=== PATIENT | female | born 1960 | race Caucasian/White ===

== ENCOUNTER 2020-01-03 17:23 | Observation (INO) | payer OTHER, SELFPAY ==
--- NOTE | ~2020-01-03 | XR_ITS ---
EXAMINATION: XR chest 1V portable INDICATION: Fever and cough TECHNIQUE: Portable AP chest at 1817 hours COMPARISON: 03/19/2018 FINDINGS: There are minimal airspace opacities of the lung bases. No pleural effusion or pneumothorax is identified. The cardiomediastinal silhouette is normal. IMPRESSION: 1. Minimal airspace opacities of the lung bases, consistent with atelectasis versus pneumonia. Reviewed, dictated and finalized at location A. IMPRESSION: 1. Minimal airspace opacities of the lung bases, consistent with atelectasis ve rsus pneumonia.
--- NOTE | ~2020-01-03 | XR_ITS ---
EXAMINATION: XR chest 2V DATE: 01/05/2020 09:24 INDICATION: Fever. TECHNIQUE: Frontal and lateral views of the chest were obtained. COMPARISON: Chest single view 01/03/2020, chest 2 views 03/19/2018 FINDINGS: Lung volumes are small, which is chronic. There is mild atelectasis in the lower lung zones . No pleural effusion or pneumothorax. The heart size is normal. Surgical clips in the right upper qu adrant are likely from cholecystectomy. IMPRESSION: 1. Chronically small lung volumes with mild atelectasis in the lower lung zones. Reviewed, dictated and finalized at location A. IMPRESSION: 1. Chronically small lung volumes with mild atelectasis in the lower lung zones .
[2020-01-03 17:30] VITALS: BP 149/89; PULSE 125; RESP 20; TEMP 38.4; O2SAT 98
--- NOTE | 2020-01-03 17:57 | ECG_ITS ---
Measurements Intervals [place] Rate: 114 P: 56 NH: 169 QRS: -53 QRSD: 122 T: 73 QT: 339 QTc: 469 Interpretive Statements SINUS TACHYCARDIA LEFT ANTERIOR FASCICULAR BLOCK VOLTAGE CRITERIA FOR LVH CANNOT RULE OUT SEPTAL INFARCT, AGE INDETERMINATE NONSPECIFIC ST & T-WAVE ABNORMALITY- HIGH LATERAL LEADS ABNORMAL ECG Electronically Signed On 01-03-2020 20:13:40 CDT by Mark Perkins D.O.
--- NOTE | 2020-01-03 18:07 | ED.GENADULT ---
HPI - General Adult General Chief complaint: Fever Stated complaint: Fever Time Seen by Provider: 01/03/20 17:56 Source: patient History of Present Illness HPI narrative: Patient is a 59 y/o female complaining of fever starting this morning. She states that her fever was up to 103 this after. She took Ibuprofen which did not help much. She also has cough and sore throat. She has some nausea, but no vomiting. She has no abdominal pain, diarrhea or dysuria. She denies any known COVID exposure. Related Data Home Medications Medication Instructions Recorded Confirmed amlodipine 5 mg PO DAILY 01/03/20 01/03/20 atorvastatin 40 mg PO HS 01/03/20 01/03/20 hydrochlorothiazide 25 mg PO DAILY 01/03/20 01/03/20 Allergies Allergy/AdvReac Type Severity Reaction Status Date / Time No Known Allergies Allergy Unknown Unverified 01/03/19 10:49 No Known Allergies Allergy Uncoded 01/03/19 10:49 Review of Systems Constitutional: Constitutional: Reports chills, Reports fever(s), Reports headache(s) and Denies weakness Eyes: Eyes: Denies blurry vision ENT: Reports headache(s) and Denies neck pain Cardiovascular: Cardiovascular: Denies chest pain and Denies dyspnea Respiratory: Respiratory: Reports cough and Denies dyspnea Gastrointestinal: Gastrointestinal: Denies abdominal pain, Denies diarrhea, Denies nausea and Denies vomiting Genitourinary: Genitourinary: Denies hematuria and Denies dysuria Musculoskeletal: Musculoskeletal: Denies back pain and Denies neck pain Neurologic: Reports headache(s) and Denies weakness [facility] Past Medical History Medical History (Updated 01/03/20 @ 22:16 by Alexandro Fuentes MD) Sleep apnea Surgical History Surgical History (Updated 01/03/20 @ 22:05 by Alexandro Fuentes MD) History of back surgery History of section, classical History of cholecystectomy Family History Family History (Updated 01/03/20 @ 22:05 by Alexandro Fuentes MD) Father Heart disease Acute myocardial infarction Social History Social History (Updated 01/03/20 @ 22:05 by Alexandro Fuentes MD) Smoking status: Former smoker Tobacco type: cigarettes Additional smoking assessment comments: social smoker Alcohol intake: current Substance use: never Substance use type: does not use Gender identity (if verbalized by the patient): Female Spiritual care concerns: No Exam Const: General: no acute distress and well developed Orientation/consciousness: oriented to person, oriented to place, oriented to time and patient oriented x3 HENMT: Head: normocephalic Ears: external ears normal General nose exam: Normal external nose present Eyes: General: appearance normal, both eyes and all related structures Conjunctivae: conjunctivae normal Neck: Neck: normal visual inspection and full ROM Chest: Chest palpation & inspection: normal inspection of the chest and no tenderness Resp: Effort & Inspection: normal respiratory effort Auscultation: clear to auscultation bilaterally Cardio: Rate: tachycardic Rhythm: regular rhythm GI: GI Palp: No abdominal tenderness and Yes Soft to palpation Skin: General skin exam: normal color and turgor normal Neuro: General: oriented to person, oriented to place, oriented to time and patient oriented x3 Cognition (Neuro): normal cognition Extrem: General: normal to inspection, full ROM and no pedal edema Psych: Appearance: grossly normal Mental Status: mental status grossly normal Affect: normal affect Course Consultations Consultation #1: Discussed with Dr. Fuentes, who agrees to admit. Date: 01/03/20 Time: 19:25 Vital Signs Vital signs: Vital Signs Temperature 38.4 C H 01/03/20 17:30 Pulse Rate 125 H 01/03/20 17:30 Respiratory Rate 20 01/03/20 17:30 Blood Pressure 149/89 H 01/03/20 17:30 Pulse Oximetry 98 01/03/20 17:30 Temperature 37.1 C 01/04/20 08:00 Pulse Rate 97 01/04/20 08:00 Respiratory Rate 18 01/04/20 08:00
[2020-01-03] MEDS: ACETAMINOPHEN 325 MG TABLET 650 MG PO (18:24)
[2020-01-03 18:59] LABS: Basophils Percent Auto 0.2 % (0.2-1.2); Eosinophils Absolute Auto 0.2 K/mm3 (0-0.3); Eosinophils Percent Auto 1.8 % (0-4.4); Hematocrit 41.6 % (37.0-47.0); Immature Granulocyte Absolute 0.05 K/mm3 (0.00-0.031); Immature Granulocyte Percent A 0.4 % (0-0.5); Lymphocytes Absolute Auto 1.52 K/mm3 (0.9-3.2); Lymphocytes Percent Auto 12.4 % (18.3-44.2); Mean Corpuscular HGB Conc 36.1 g/dl (32-36); Mean Corpuscular Hemoglobin 30.6 pg (26-34); Mean Corpuscular Volume 84.9 fl (80-100); Mean Platelet Volume 10.5 fl (7.4-10.4); Monocytes Absolute Auto 0.8 K/mm3 (0.1-0.6); Monocytes Percent Auto 6.4 % (2.6-8.5); Neutrophils Absolute Auto 9.7 K/mm3 (1.3-6.7); Neutrophils Percent Auto 78.8 % (45.5-73.1); Platelet Count Result 197 k/mm3 (150-375); Red Cell Distribution Width 12.8 % (11.5-14.5); White Blood Count 12.3 K/mm3 (4.5-10.0)
[2020-01-03 19:10] LABS: Lactic Acid Reflex 2.1 mmol/L (0.7-2.1)
[2020-01-03 19:11] LABS: Alanine Aminotransferase 69 U/L (4-35); Albumin Level 4.3 g/dL (3.5-5.1); Alkaline Phosphatase 99 U/L (38-126); Anion Gap 11 mmol/L (8-16); Aspartate Amino Transferase 47 U/L (14-36); Bilirubin,Total 0.7 mg/dL (0.2-1.3); Blood Urea Nitrogen 16 mg/dL (7-17); Calcium 9.2 mg/dL (8.4-10.2); Carbon Dioxide 25 mmol/L (22-30); Chloride 102 mmol/L (98-107); Estimated CRCL calculation 108 ml/min; Estimated Glomerular Filt Rate > 60; Glucose 182 mg/dL (65-105); Potassium 3.4 mmol/L (3.4-5.0); Sodium 138 mmol/L (137-145)
[2020-01-03 19:33] LABS: Add Urine Microscopic? YES; Appearance Urine Clear (Clear); Bilirubin Urine Negative (Negative); Blood Urine Negative (Negative); Color Urine Yellow (Yellow); Glucose Urine UA 1+ mg/dL (Negative); Ketones Urine Trace mg/dL (Negative); Leukocyte Esterase Ur 1+ LEU/UL (Negative); Mucus Urine Rare /lpf; Nitrate Urine Negative (Negative); Protein Urine 1+ mg/dL (Negative); Specific Grav Ur 1.024 (1.001-1.035); Squamous Epithelial Cell Urine Occasional /hpf (Few); Urobilinogen Urine Negative mg/dL (<2.0); WBC Urine 16-20 /hpf
[2020-01-03 19:39] VITALS: BP 133/92; PULSE 111; RESP 18; TEMP 38.7; O2SAT 96
[2020-01-03 21:10] VITALS: BP 137/72; PULSE 103; RESP 18; TEMP 37.3; O2SAT 94; BMI 37.4
[2020-01-03 21:13] VITALS: BP 154/103; PULSE 104; RESP 22; O2SAT 97
[2020-01-03 21:56] LABS: Reflex Lactic Acid Yes or No Add Lactic
[2020-01-03 22:00] VITALS: BP 137/72; PULSE 103; RESP 18; TEMP 37.3; O2SAT 94
--- NOTE | 2020-01-03 22:01 | PM.IMHP ---
H&P: HPI History of Present Illness Date/Time: 01/03/20 22:01 Chief complaint: pneumonia, sepsis Narrative: this is a morbidly obese 59-year-old female with known sleep apnea who uses a CPAP at home and who presented to the hospital today with complaint of fever of 103? F that started this morning. The patient also reports having a dry hacking sporadic cough that also seems of started this morning. She denies any shortness of breath, chest pain, palpitations, nausea, vomiting, diarrhea, dysuria, open wounds, rashes, lower extremity swelling, or focal neurological deficits. the patient was evaluated emergency room this evening and found to have a mild leukocytosis of 12,300. chest x-ray was obtained which demonstrated minimal airspace opacities of the lung bases. The patient has not required any supplemental oxygen to maintain her saturations and on my encounter with the patient she is saturating 98% on room air. The patient was treated with antibiotics for presumed bacterial pneumonia and swabbed for coronavirus. The patient was admitted to the hospital for observation. No other complaints tonight. Review of Systems Review of Systems: All systems reviewed & are unremarkable except as noted in HPI and below PMFSH Past Medical History Medical History (Updated 01/03/20 @ 22:16 by Alexandro Fuentes MD) Sleep apnea Surgical History Surgical History (Updated 01/03/20 @ 22:05 by Alexandro Fuentes MD) History of back surgery History of section, classical History of cholecystectomy Family History Family History (Updated 01/03/20 @ 22:05 by Alexandro Fuentes MD) Father Heart disease Acute myocardial infarction Social History Social History (Updated 01/03/20 @ 22:05 by Alexandro Fuentes MD) Smoking status: Former smoker Tobacco type: cigarettes Additional smoking assessment comments: social smoker Alcohol intake: current Substance use: never Substance use type: does not use Gender identity (if verbalized by the patient): Female Spiritual care concerns: No Meds Home Medications and Allergies Home Medications Medication Instructions Recorded Confirmed Type amlodipine 5 mg PO DAILY 01/03/20 01/03/20 History atorvastatin 40 mg PO HS 01/03/20 01/03/20 History hydrochlorothiazide 25 mg PO DAILY 01/03/20 01/03/20 History Allergies Allergy/AdvReac Type Severity Reaction Status Date / Time No Known Allergies Allergy Unknown Unverified 01/03/19 10:49 No Known Allergies Allergy Uncoded 01/03/19 10:49 Vital Signs Vital Signs - 24 hr 01/03/20 17:30 01/03/20 19:39 01/03/20 21:10 Temperature 38.4 C H 38.7 C H 37.3 C Pulse Rate 125 H 111 H 103 H Respiratory Rate 20 18 18 Blood Pressure 149/89 H 133/92 H 137/72 Pulse Oximetry 98 96 94 01/03/20 21:13 Temperature Pulse Rate 104 H Respiratory Rate 22 H Blood Pressure 154/103 H Pulse Oximetry 97 Exam Const: General: cooperative, no acute distress, alert and awake Nutritional Appearance: obese morbidly obese Orientation/consciousness: patient oriented x3 HENMT: Head: normal to inspection General nose exam: Normal external nose present Face and sinus: normal facial exam Mouth: Yes Normal oral and palatal mucosa present and Yes oropharynx normal Eyes: Pupils: Equal, round and reactive pupils present EOM: EOMs intact bilaterally Neck: Neck: supple and no JVD Thyroid: thyroid normal Lymphatic: lymphadenopathy not noted Resp: Effort & Inspection: normal respiratory effort Auscultation: clear to auscultation bilaterally Cardio: Rate: tachycardic Rhythm: regular rhythm Heart sounds: no murmurs GI: Inspection: normal to inspection Auscultation: normal bowel sounds Skin: General skin exam: normal color and no rashes or lesions noted Neuro: General: patient oriented x3 Cranial nerves: Yes CN's II-XII intact bilaterally and Yes Equal, round and reactive pupils present Speech: normal speech Ryan
[2020-01-03 22:53] VITALS: BMI 37.4
--- NOTE | 2020-01-03 22:59 | PC.NURSE ---
This patient, Natalee Glaser, was admitted to [facility] Surg Room 328-01. Patient/family oriented to hospital policies and general routines including ID bracelet, bed and alarms, visiting hours, pain management, procedures, bathroom and other care routines, personal items, smoking policy, room service/diet, and visiting hours. Valuables list has been completed. Information on how to activate the Rapid Response Team has been discussed. Patient/Family are encouraged to report perceived risks to care and to ask questions if they do not understand what they are told or what they should do.
[2020-01-04] VITALS (9 sets, daily range): BP systolic 125–154; BP diastolic 56–79; PULSE 83–104; RESP 18–20; TEMP 36.9–38.8; O2SAT 96–100
[2020-01-04] MEDS: ACETAMINOPHEN 325 MG TABLET 650 MG PO ×2 (01:36→15:06)
[2020-01-04 06:44] LABS: Basophils Percent Auto 0.2 % (0.2-1.2); Eosinophils Absolute Auto 0.2 K/mm3 (0-0.3); Eosinophils Percent Auto 1.6 % (0-4.4); Hematocrit 39.1 % (37.0-47.0); Hemoglobin 13.7 g/dL (12.0-15.0); Immature Granulocyte Absolute 0.05 K/mm3 (0.00-0.031); Immature Granulocyte Percent A 0.4 % (0-0.5); Lymphocytes Absolute Auto 1.67 K/mm3 (0.9-3.2); Lymphocytes Percent Auto 13.4 % (18.3-44.2); Mean Corpuscular Hemoglobin 30.4 pg (26-34); Mean Corpuscular Volume 86.7 fl (80-100); Mean Platelet Volume 10.1 fl (7.4-10.4); Neutrophils Absolute Auto 9.5 K/mm3 (1.3-6.7); Neutrophils Percent Auto 76.4 % (45.5-73.1); Platelet Count Result 158 k/mm3 (150-375); Red Blood Count 4.51 M/mm3 (4.2-5.4); White Blood Count 12.5 K/mm3 (4.5-10.0)
[2020-01-04 07:03] LABS: Alanine Aminotransferase 56 U/L (4-35); Albumin Level 3.9 g/dL (3.5-5.1); Alkaline Phosphatase 88 U/L (38-126); Anion Gap 8 mmol/L (8-16); Aspartate Amino Transferase 35 U/L (14-36); Bilirubin,Total 0.7 mg/dL (0.2-1.3); Blood Urea Nitrogen 14 mg/dL (7-17); Calcium 8.6 mg/dL (8.4-10.2); Carbon Dioxide 28 mmol/L (22-30); Chloride 102 mmol/L (98-107); Estimated CRCL calculation 96 ml/min; Estimated Glomerular Filt Rate > 60; Glucose 184 mg/dL (65-105); Potassium 3.6 mmol/L (3.4-5.0); Sodium 138 mmol/L (137-145)
[2020-01-04] MEDS: ALBUTEROL SULFATE (*SP) AEROSOL 1 PUFF 2 PUFF INHALATION ×2 (09:40→20:28)
[2020-01-04 12:00] LABS: SARS-CoV-2 RNA PCR Negative
--- NOTE | 2020-01-04 16:15 | PM.IMPN ---
Progress Note: A&P Assessment and Plan (1) Febrile illness, acute: Code(s): R50.9 - Fever, unspecified Status: Acute Assessment and Plan: acute febrile illness is likely viral in origin. Patient likely has viral respiratory illness. Will rule out Coronavirus. The patient's chest x-ray on my review does not appear to have any significant pneumonia. On exam the patient's lung sheehan are clear and she is not requiring any supplemental oxygen. Continue antipyretics as needed. 01/04/20 16:15 patient is a 59-year-old morbidly obese with history of sleep apnea and on CPAP presented emergency department with a complaint of fever and some cough patient was evaluated in emergency depart is found to slightly elevated white chest x-ray indicating infiltrate and patient is being admitted for community-acquired pneumonia and being treated with azithromycin and Rocephin, patient was also tested for COVID-19 and is negative, currently patient states feeling much better it has improved not a short of breath denies any fever or chills. will continue present managed repeat checks x-ray on Friday 01/05 and further recommendation to follow (2) Suspected 2019 novel coronavirus infection: Code(s): Z20.828 - Contact with and (suspected) exposure to other viral communicable diseases Status: Acute Assessment and Plan: Patient has been swab for Coronavirus. Coronavirus results pending. Continue droplet isolation. Continue meter dose inhaler bronchodilators. (3) Sepsis: Qualifiers: Sepsis acute organ dysfunction status: unspecified Sepsis type: sepsis due to unspecified organism Qualified Code(s): A41.9 - Sepsis, unspecified organism Code(s): A41.9 - Sepsis, unspecified organism Status: Acute Assessment and Plan: patient met sepsis criteria with tachycardia and fever. continue supportive care. (4) Transaminitis: Code(s): R74.0 - Nonspecific elevation of levels of transaminase and lactic acid dehydrogenase [LDH] Status: Acute Assessment and Plan: May be secondary to covid-19 vs. fatty liver disease. Check LFTs in am. consider RUQ ultrasound in outpatient setting. (5) Abnormal glucose: Code(s): R73.09 - Other abnormal glucose Status: Acute Assessment and Plan: r/o Diabetes mellitus. Check HgbA1c. Subjective Date/time seen: 01/04/20 16:15 patient is a 59-year-old morbidly obese with history of sleep apnea and on CPAP presented emergency department with a complaint of fever and some cough patient was evaluated in emergency depart is found to slightly elevated white chest x-ray indicating infiltrate and patient is being admitted for community-acquired pneumonia and being treated with azithromycin and Rocephin, patient was also tested for COVID-19 and is negative, currently patient states feeling much better it has improved not a short of breath denies any fever or chills. will continue present managed repeat checks x-ray on Friday 01/05 and further recommendation to follow Review of Systems Review of Systems: All systems reviewed & are unremarkable except as noted in HPI and below Exam Narrative: Exam Narrative: morbidly obese Const: General: comfortable and no acute distress HENMT: General nose exam: Normal nares present Eyes: Sclera: sclerae normal Neck: Neck: supple Resp: Other: bilateral fair air entry with rhonchi Cardio: Rate: regular rate Rhythm: regular rhythm GI: Auscultation: normal bowel sounds Skin: General skin exam: normal color Neuro: Speech: normal speech Sensory Exam: normal sensation Extrem: General: normal to inspection Psych: Affect: Anxious affect present Objective Data Vital Signs Vital Signs: Vital Signs - 24 hr 01/03/20 17:30 01/03/20 19:39 01/03/20 21:10 Temperature 101.2 F H 101.6 F H 99.2 F Pulse Rate 125 H 111 H 103 H Respiratory Rate 20 18 18 Blood Pressure 149/89 H 133/92 H 1
[2020-01-05] MEDS: ALBUTEROL SULFATE (*SP) AEROSOL 1 PUFF 2 PUFF INHALATION ×2 (02:21→08:29)
[2020-01-05 06:00] VITALS: BP 144/79; PULSE 83; RESP 20; TEMP 36.8; O2SAT 95
--- NOTE | 2020-01-05 11:21 | PM.DS ---
DS: Admitting Diagnosis Admitting Diagnosis Admitting Diagnosis: pneumonia, sepsis DS: Discharge Diagnosis Discharge Diagnosis (1) Febrile illness, acute: Code(s): R50.9 - Fever, unspecified Status: Acute Assessment and Plan: acute febrile illness is likely viral in origin. Patient likely has viral respiratory illness. Will rule out Coronavirus. The patient's chest x-ray on my review does not appear to have any significant pneumonia. On exam the patient's lung sheeahn are clear and she is not requiring any supplemental oxygen. Continue antipyretics as needed. 01/04/20 16:15 patient is a 59-year-old morbidly obese with history of sleep apnea and on CPAP presented emergency department with a complaint of fever and some cough patient was evaluated in emergency depart is found to slightly elevated white chest x-ray indicating infiltrate and patient is being admitted for community-acquired pneumonia and being treated with azithromycin and Rocephin, patient was also tested for COVID-19 and is negative, currently patient states feeling much better it has improved not a short of breath denies any fever or chills. will continue present managed repeat checks x-ray on Friday 01/05 and further recommendation to follow (2) Suspected 2019 novel coronavirus infection: Code(s): Z20.828 - Contact with and (suspected) exposure to other viral communicable diseases Status: Acute Assessment and Plan: Patient has been swab for Coronavirus. Coronavirus results pending. Continue droplet isolation. Continue meter dose inhaler bronchodilators. (3) Sepsis: Qualifiers: Sepsis acute organ dysfunction status: unspecified Sepsis type: sepsis due to unspecified organism Qualified Code(s): A41.9 - Sepsis, unspecified organism Code(s): A41.9 - Sepsis, unspecified organism Status: Acute Assessment and Plan: patient met sepsis criteria with tachycardia and fever. continue supportive care. (4) Transaminitis: Code(s): R74.0 - Nonspecific elevation of levels of transaminase and lactic acid dehydrogenase [LDH] Status: Acute Assessment and Plan: May be secondary to covid-19 vs. fatty liver disease. Check LFTs in am. consider RUQ ultrasound in outpatient setting. (5) Abnormal glucose: Code(s): R73.09 - Other abnormal glucose Status: Acute Assessment and Plan: r/o Diabetes mellitus. Check HgbA1c. DS: Summary Hospital Course Reason for hospitalization: Chief complaint: pneumonia, sepsis Narrative: this is a morbidly obese 59-year-old female with known sleep apnea who uses a CPAP at home and who presented to the hospital today with complaint of fever of 103? F that started this morning. The patient also reports having a dry hacking sporadic cough that also seems of started this morning. She denies any shortness of breath, chest pain, palpitations, nausea, vomiting, diarrhea, dysuria, open wounds, rashes, lower extremity swelling, or focal neurological deficits. the patient was evaluated emergency room this evening and found to have a mild leukocytosis of 12,300. chest x-ray was obtained which demonstrated minimal airspace opacities of the lung bases. The patient has not required any supplemental oxygen to maintain her saturations and on my encounter with the patient she is saturating 98% on room air. The patient was treated with antibiotics for presumed bacterial pneumonia and swabbed for coronavirus. The patient was admitted to the hospital for observation. No other complaints tonight. Hospital Course: patient is a 59-year-old morbidly obese with history of sleep apnea and on CPAP presented emergency department with a complaint of fever and some cough patient was evaluated in emergency depart is found to slightly elevated white chest x-ray indicating infiltrate and patient is being admitted for community-acquired pneumonia and being tr
== END 2020-01-05 14:10 | disposition home or self-care (01) ==
LOC: ANHED 19:27 → ANH3MEDSUR 19:51
PROVIDERS: Admitting Provider Family Medicine; Emergency Provider Emergency Medicine; Visit Provider Family Medicine
DX: J15.9 Unspecified bacterial pneumonia (principal); A41.9 Sepsis, unspecified organism; R50.9 Fever, unspecified; R11.0 Nausea; R51 Headache; F17.210 Nicotine dependence, cigarettes, uncomplicated; R94.31 Abnormal electrocardiogram [ECG] [EKG]; Z20.828 Contact with and (suspected) exposure to other viral communicable diseases; R74.0 Nonspecific elevation of levels of transaminase and lactic acid dehydrogenase [LDH]; R73.09 Other abnormal glucose
CPT/HCPCS: 36415; 71045; 71046; 80053; 81001; 83036; 83605; 85025; 87040; 87081; 87086; 87088; 87147; 87635; 87880; 93005; 94640; 96365; 96368; 99285; A9270; C9803; G0378; J0456; J0696; U0003

== ENCOUNTER 2023-12-20 19:09 | Emergency (ER) | payer BC, SELFPAY ==
--- NOTE | ~2023-12-20 | XR_ITS ---
XR elbow RT min 3V Ordering provider: Cassandra Pfeiffer MD History: . injury/ GLF . Comparison: None. FINDINGS: BONES: No acute fracture or dislocation. JOINT SPACES: Narrowing of the joint is noted with osteophytes suggestive of osteoarthritic changes. SOFT TISSUES: Unremarkable. No definite joint effusion. IMPRESSION: No acute osseous abnormality of the right elbow. Reviewed, dictated and finalized at location A.
--- NOTE | ~2023-12-20 | XR_ITS ---
XR foot LT min 3V Ordering provider: Cassandra Pfeiffer MD History: . injury/ GLF . Comparison: None. FINDINGS: BONES: No acute fracture or dislocation. Calcaneus spur. Ossification of the insertion of the tendo Achilles. JOINT SPACES: Normal. No tarsal coalition. SOFT TISSUES: Normal. IMPRESSION: No acute osseous abnormality left foot. Reviewed, dictated and finalized at location A.
[2023-12-20 19:16] VITALS: BP 128/72; PULSE 64; RESP 17; TEMP 36.6; O2SAT 100
--- NOTE | 2023-12-20 19:33 | ED.FALL ---
HPI - Fall General Chief Complaint: Extremity Injury, Upper Stated Complaint: glf fall Time Seen by Provider: 12/20/23 19:19 Source: patient and family Mode of arrival: ambulatory Limitations: no limitations History of Present Illness HPI Narrative: Patient presents after sustaining a ground level fall. She was walking with her son and [id number] and granddaughter. A car was coming so they moved off the edge of the sidewalk but in doing so she accidentally tripped and fell. She denies any loss of consciousness . she is right-hand dominant. Not on anticoagulation. She did strike her chin but she denies any broken or loose dentition. She denies any abrasions or lacerations. Currently experiencing pain at her right elbow and left mid-lateral foot. History of right shoulder replacement approximately 1 year ago ([facility] Dr Morrison). she also has a history of an injury/fracture to her left foot at this area. Related Data Home Medications Medication Instructions Recorded Confirmed amlodipine 5 mg tablet 5 mg PO DAILY 01/03/20 01/03/20 atorvastatin 40 mg tablet 40 mg PO HS 01/03/20 01/03/20 hydrochlorothiazide 25 mg tablet 25 mg PO DAILY 01/03/20 01/03/20 Allergies Allergy/AdvReac Type Severity Reaction Status Date / Time NSAIDS (Non-Steroidal AdvReac Other Verified 12/20/23 19:11 Anti-Inflamma PMFSH Past Medical History Medical History Foot fracture, left history of Right hand dominant Sleep apnea Surgical History Surgical History History of back surgery History of section, classical History of cholecystectomy History of right shoulder replacement approx 2022; [facility] (Dr Morrison) Family History Family History (Updated 01/03/20 @ 22:05 by Alexandro FuentesMD) Father Heart disease Acute myocardial infarction Social History Social History (Updated 01/03/20 @ 22:05 by Alexandro FuentesMD) Smoking status: Former smoker Tobacco type: cigarettes Additional smoking assessment comments: social smoker Alcohol intake: current Substance use: never Substance use type: does not use Gender identity (if verbalized by the patient): Female Spiritual care concerns: No Exam Narrative: GENERAL: Well-appearing, well-nourished, and in no acute distress. HEAD: Normocephalic, atraumatic. EYES: Non injected, non icteric ENT: Nares clear, no rhinorrhea or epistaxis. No loose or broken dentition NECK: Supple. CHEST: Speaking in full sentences. No respiratory distress. HEART: Regular rate and rhythm. . ABDOMEN: Soft, nondistended. EXTREMITIES: No tenderness to palpation of the right elbow although she does have difficulty full extension in this extremity at the elbow. extremities Neurovascularly intact otherwise. SKIN: Warm, dry, no rash. Skin intact without laceration or abrasion. Mild swelling and Faint ecchymosis along the lateral aspect of left mid foot without ecchymosis along the plantar aspect of the left foot. NEURO: No focal deficits. Alert and oriented x3. speaks clearly without aphasia or dysarthria. PSYCH: Normal mood and affect. Course Vital Signs Vital signs: Vital Signs Temperature 97.9 F 12/20/23 19:16 Pulse Rate 64 12/20/23 19:16 Respiratory Rate 17 12/20/23 19:16 Blood Pressure 128/72 12/20/23 19:16 Pulse Oximetry 100 12/20/23 19:16 Temperature 97.9 F 12/20/23 19:16 Pulse Rate 64 12/20/23 19:16 Respiratory Rate 17 12/20/23 19:16 Blood Pressure 128/72 12/20/23 19:16 Pulse Oximetry 100 12/20/23 19:16 MDM - Fall MDM Narrative Medical decision making narrative: patient is a right-handed dominant female who presents after ground level fall. Currently having pain in her right elbow and her left lateral midfoot. No loss of consciousness. She did strike her chin as well but denies any broken or
[2023-12-20] MEDS: HYDROcodone/acetaminophen (*CRX) 5-325 MG TABLET 1 TAB PO (19:46)
== END 2023-12-20 20:53 | disposition home or self-care (01) ==
PROVIDERS: Emergency Provider Student in an Organized Health Care Education/Training Program
DX: S59.901A Unspecified injury of right elbow, initial encounter (principal); S99.922A Unspecified injury of left foot, initial encounter; G47.30 Sleep apnea, unspecified; Z96.611 Presence of right artificial shoulder joint; Z87.891 Personal history of nicotine dependence; Z90.49 Acquired absence of other specified parts of digestive tract; W01.0XXA Fall on same level from slipping, tripping and stumbling without subsequent striking against object, initial encounter
CPT/HCPCS: 73080; 73630; 99284; A9270